=== PATIENT | female | born 1995 ===

== ENCOUNTER 2021-02-08 08:08 | Emergency (ER) | payer SELFPAY ==
[2021-02-08 08:17] VITALS: BP 132/94; PULSE 93; RESP 16; TEMP 36.8; O2SAT 99
--- NOTE | 2021-02-08 08:43 | ED.URI ---
HPI - URI/Sore Throat General Chief Complaint: Upper Respiratory Infection Stated Complaint: Sore throat Time Seen by Provider: 02/08/21 08:38 Source: patient and RN notes reviewed Mode of arrival: ambulatory Limitations: no limitations History of Present Illness HPI Narrative: Patient presents today complaining of sore throat x2 days with bilateral ear pain. Denies cough, congestion, rhinorrhea. Currently rates her pain 9/10 and has been taking ibuprofen, Tylenol, and cough drops without relief. MD elicited complaint: sore throat Related Data Allergies Allergy/AdvReac Type Severity Reaction Status Date / Time ethinyl estradiol [NuvaRing] Allergy Unknown itching, Verified 02/08/21 08:16 elevated liver enzymes etonogestrel [NuvaRing] Allergy Unknown itching, Verified 02/08/21 08:16 elevated liver enzymes No Known Allergies Allergy Verified 02/08/21 08:16 Review of Systems Review of Systems: CONSTITUTIONAL: Denies body aches, fever, chills, or sweats. EYES: Denies visual changes, redness, or discharge. ENT: Denies rhinorrhea, congestion. + Sore throat, ear pain CARDIOVASCULAR: Denies chest pain, palpitations, or edema. RESPIRATORY: Denies cough or dyspnea. GASTROINTESTINAL: Denies abdominal pain, nausea, vomiting, or diarrhea. GENITOURINARY: Denies dysuria or hematuria. SKIN: Denies rash, itching, or wounds. MUSCULOSKELETAL: Denies back pain, joint pain, or myalgia. NEUROLOGIC: Denies headache, numbness, tingling, or weakness. PSYCH: Denies depression or anxiety. [facility] Family History Family History Mother Depression Suicide Father Hypertension Grandparent Hypertension Cerebrovascular accident Family history of lung cancer Family history of malignant neoplasm of brain Social History Social History Smoking status: Never smoker Alcohol intake: current Drinks per week: 2 Substance use: never Additional occupation/education comments: [employer] Gender identity (if verbalized by the patient): Female Sexual Orientation (if Verbalized by the Patient): Straight or Heterosexual Spiritual care concerns: No Agree to blood products: Yes Comments At time of signature, I have reviewed and agree with nursing past medical, surgical, social and family history unless otherwise noted. Please see nursing chart for further information. There is no relevant family history pertinent to the presenting complaint Exam Narrative: GENERAL: Well-appearing, well-nourished, and in no acute distress. HEAD: Normocephalic, atraumatic. EYES: EOMI. No redness or drainage. Conjunctivae normal. ENT: Mucous membranes pink and moist. Nares clear. No rhinorrhea. TMs normal bilaterally. Throat mildly erythematous without edema or exudate. Uvula midline. NECK: Normal AROM. Supple. No lymphadenopathy. CHEST: No respiratory distress. Clear to auscultation. HEART: Regular rate and rhythm. No murmur appreciated. Normal peripheral pulses. EXTREMITIES: Normal range of motion. No edema. SKIN: Warm, dry, no rash. Capillary refill normal. Normal skin turgor. NEURO: No focal deficits. Alert and oriented x3. Gait steady. PSYCH: Normal affect. No signs of depression or anxiety. Course Vital Signs Vital signs: Vital Signs Temperature 98.3 F 02/08/21 08:17 Pulse Rate 93 02/08/21 08:17 Respiratory Rate 16 02/08/21 08:17 Blood Pressure 132/94 H 02/08/21 08:17 Pulse Oximetry 99 02/08/21 08:17 Temperature 98.3 F 02/08/21 08:17 Pulse Rate 93 02/08/21 08:17 Respiratory Rate 16 02/08/21 08:17 Blood Pressure 132/94 H 02/08/21 08:17 Pulse Oximetry 99 02/08/21 08:17 Reviewed. Pt has been instructed to follow up with her PCP regarding her elevated blood pressure today. MDM - URI/Sore Throat Differential Diagnosis Differential diagnosis: Likely
== END 2021-02-08 08:47 | disposition home or self-care (01) ==
PROVIDERS: Emergency Provider Nurse Practitioner; PCP Family Medicine
DX: J02.9 Acute pharyngitis, unspecified (principal)
CPT/HCPCS: 87081; 87880; 99213; G0463

== ENCOUNTER 2023-08-05 03:12 | Emergency (ER) | payer OTHER, SELFPAY ==
--- NOTE | ~2023-08-05 | CT_ITS ---
EXAMINATION: CT abdomen pelvis wo con DATE: 08/05/2023 04:18 INDICATION: Left flank pain. TECHNIQUE: Computed tomography (CT) of the abdomen and pelvis was performed without intravenous contr ast. Automated exposure control and iterative reconstruction technique were employed. The dose-length product was 872.57 mGy-cm. COMPARISON: CT abdomen and pelvis 07/14/2016 FINDINGS: The visualized portions of the lung bases demonstrate mild atelectasis. There is a 4 mm nod ule in right middle lobe, likely benign. There is a 4 mm nodule in right lower lobe, likely benign. N o pleural effusion. The heart size is normal. No pericardial effusion. The liver, gallbladder, spleen , pancreas, adrenal glands, and kidneys are normal. There is a 2 mm stone in the distal left ureter. There is mild left hydroureter. There are no dilated loops of bowel. The appendix is normal. There ar e no pathologically enlarged lymph nodes. There is no free intraperitoneal fluid. There is mild thora cic spondylosis. IMPRESSION: 1. 2 mm stone in distal left ureter with mild left hydroureter. Reviewed, dictated and finalized at location A.
[2023-08-05 03:16] VITALS: BP 136/74; PULSE 88; RESP 15; TEMP 36.7; O2SAT 100
[2023-08-05 03:28] VITALS: BP 128/79; PULSE 77; RESP 16; O2SAT 100
--- NOTE | 2023-08-05 03:30 | ED.ABDPAIN ---
HPI - Abdominal Pain General Chief Complaint: Abdominal Pain Stated Complaint: Lower left abd pain Time Seen by Provider: 08/05/23 03:14 History of Present Illness HPI narrative: Patient is a 28-year-old female presents to the emergency department this morning complaining of left-sided flank pain and left lower quadrant abdominal pain. Patient admits that she has had similar symptoms in the past when she had kidney stones and believes that she is passing another one. Patient denies any vomiting episodes but states that she has been nauseous secondary to the pain. She denies any history of ovarian cyst, denies any chance of , and is denying any urinary symptoms including dysuria or hematuria. Patient denies any fevers or chills at home. There are no other modifying, alleviating, or precipitating factors at this time. Related Data Allergies Allergy/AdvReac Type Severity Reaction Status Date / Time ethinyl estradiol [NuvaRing] Allergy Unknown itching, Verified 08/05/23 03:30 elevated liver enzymes etonogestrel [NuvaRing] Allergy Unknown itching, Verified 08/05/23 03:30 elevated liver enzymes amoxicillin Allergy Hives Verified 08/05/23 03:30 No Known Allergies Allergy Verified 02/08/21 08:16 Review of Systems Review of Systems: All systems are reviewed and are negative unless stated otherwise in the HPI. PMFSH Family History Family History Mother Depression Suicide Father Hypertension Grandparent Hypertension Cerebrovascular accident Family history of lung cancer Family history of malignant neoplasm of brain Social History Social History Smoking status: Never smoker Alcohol intake: current Drinks per week: 2 Substance use: never Living arrangements: with family Occupation/Education: occupation Additional occupation/education comments: [employer] Gender identity (if verbalized by the patient): Female Sexual Orientation (if Verbalized by the Patient): Straight or Heterosexual Spiritual care concerns: No Agree to blood products: Yes Exam Narrative: General: Alert, awake, afebrile, in no acute distress. HEENT: PERRL, no rhinorrhea, no post nasal drip, oropharynx clear. Neck: Trachea midline, no JVD, no lymphadenopathy. Cardiovascular: Regular rate and rhythm, no murmurs, rubs or gallops, no peripheral edema. Respiratory: Clear to auscultation bilaterally, no tachypnea, no wheezing, no rhonchi, no rubs, no respiratory distress. Abdomen: Soft, left CVA tenderness, nondistended, no rebound, no guarding, no peritoneal signs. Musculoskeletal: No joint swelling or deformity, normal muscle tone. Skin: No rashes or petechia, no signs of infection. Psychiatric: Alert and oriented, normal behavior and judgment for situation. Neurological: Alert and oriented to person, place, and time. Follows all commands. No focal deficits, speech is clear and fluent. Course Vital Signs Vital signs: Vital Signs Temperature 98.0 F 08/05/23 03:16 Pulse Rate 88 08/05/23 03:16 Respiratory Rate 15 08/05/23 03:16 Blood Pressure 136/74 08/05/23 03:16 Pulse Oximetry 100 08/05/23 03:16 Temperature 98.0 F 08/05/23 03:16 Pulse Rate 85 08/05/23 04:44 Respiratory Rate 17 08/05/23 04:44 Blood Pressure 114/75 08/05/23 04:44 Pulse Oximetry 100 08/05/23 04:44 MDM - Abdominal Pain MDM Narrative Medical decision making narrative: The patient was evaluated by myself in the emergency department. History is obtained from patient who is an independent historian and physical exam was performed. External medical records were reviewed at this time. IV was established and pertinent tests were ordered. Patient was administered 2 mg of IV morphine and 4 mg of IV Zofran for nausea. Laboratory results obtained revealing no acute
[2023-08-05] MEDS: ONDANSETRON INJ 4 MG/2 ML VIAL IV PUSH (03:45)
[2023-08-05] MEDS: MORPHINE SULFATE (*CRX) 2 MG/ML INJ IV PUSH (03:45)
[2023-08-05 03:54] LABS: Basophils Percent Auto 0.3 % (0.2-1.2); Eosinophils Absolute Auto 0.3 K/mm3 (0-0.3); Eosinophils Percent Auto 3.6 % (0-4.4); Hematocrit 38.9 % (37.0-47.0); Hemoglobin 12.6 g/dL (12.0-15.0); Immature Granulocyte Absolute 0.02 K/mm3 (0.00-0.031); Immature Granulocyte Percent A 0.2 % (0-0.5); Lymphocytes Absolute Auto 1.63 K/mm3 (0.9-3.2); Lymphocytes Percent Auto 18.3 % (18.3-44.2); Mean Corpuscular HGB Conc 32.4 g/dl (32-36); Mean Corpuscular Hemoglobin 27.8 pg (26-34); Mean Corpuscular Volume 85.9 fl (80-100); Mean Platelet Volume 9.1 fl (7.4-10.4); Monocytes Absolute Auto 0.6 K/mm3 (0.1-0.6); Monocytes Percent Auto 7.1 % (2.6-8.5); Neutrophils Absolute Auto 6.3 K/mm3 (1.3-6.7); Neutrophils Percent Auto 70.5 % (45.5-73.1); Platelet Count Result 254 k/mm3 (150-375); Red Blood Count 4.53 M/mm3 (4.2-5.4); Red Cell Distribution Width 12.8 % (11.5-14.5); White Blood Count 8.9 K/mm3 (4.5-10.0)
[2023-08-05 03:57] LABS: Bacteria Urine None Seen /hpf; RBC Urine >100 /hpf (0-2); Squamous Epithelial Cell Urine Occasional /hpf (Few)
[2023-08-05 03:59] LABS: Appearance Urine Clear (Clear); Bilirubin Urine Negative (Negative); Blood Urine 3+ (Negative); Color Urine Yellow (Yellow); Glucose Urine UA Negative (Negative); Ketones Urine Trace mg/dL (Negative); Nitrate Urine Negative (Negative); Protein Urine Trace mg/dL (Negative); Specific Grav Ur 1.025 (1.001-1.035)
[2023-08-05 04:00] LABS: Leukocyte Esterase Ur Negative LEU/UL (Negative); Urobilinogen Urine 0.2 mg/dL (<2.0)
[2023-08-05 04:03] LABS: Alanine Aminotransferase 19 U/L (6-35); Albumin Level 4.3 g/dL (3.5-5.1); Alkaline Phosphatase 76 U/L (38-126); Anion Gap 5 mmol/L (4-12); Aspartate Amino Transferase 23 U/L (14-36); Bilirubin,Total 0.5 mg/dL (0.2-1.3); Blood Urea Nitrogen 12 mg/dL (7-17); Calcium 9.3 mg/dL (8.4-10.2); Carbon Dioxide 31 mmol/L (22-30); Chloride 104 mmol/L (98-107); Estimated CRCL calculation 88 ml/min; Estimated Glomerular Filt Rate > 60; Glucose 114 mg/dL (65-110); Potassium 3.4 mmol/L (3.4-5.0); Sodium 140 mmol/L (137-145)
[2023-08-05 04:04] LABS: Lactic Acid Reflex 1.5 mmol/L (0.7-2.0)
[2023-08-05 04:23] LABS: SPREG INTERNAL CONTROL Positive; Serum Qual hCG Negative
[2023-08-05 04:24] LABS: Add Urine Microscopic? YES
[2023-08-05] MEDS: SODIUM CHLORIDE 0.9% IV 1,000 ML 999 ML IV CONT (04:24)
[2023-08-05 04:44] VITALS: BP 114/75; PULSE 85; RESP 17; O2SAT 100
[2023-08-05] MEDS: KETOROLAC 15 MG/ML VIAL (*BKC) IV PUSH (05:11)
== END 2023-08-05 05:10 | disposition home or self-care (01) ==
PROVIDERS: Emergency Provider Emergency Medicine
DX: N13.2 Hydronephrosis with renal and ureteral calculous obstruction (principal)
CPT/HCPCS: 36415; 74176; 80053; 81001; 81025; 83605; 84703; 85025; 87086; 87088; 96361; 96374; 96375; 99284; J1885; J2270; J2405; J7030

== ENCOUNTER 2023-08-08 06:05 | Day surgery (SDC) | payer OTHER, SELFPAY ==
[2023-08-08] VITALS (7 sets, daily range): BP systolic 125–145; BP diastolic 75–109; PULSE 71–100; RESP 12–19; TEMP 36.6; O2SAT 96–100
--- NOTE | ~2023-08-08 | XR_ITS ---
XR retrograde pyelo w/stent LT DATE: 08/08/2023 09:17 INDICATION: Left urinary tract stone. TECHNIQUE: 5 spot C-arm images of the abdomen and pelvis. 25 seconds fluoroscopy time 9.69 mGy COMPARISON: CT abdomen pelvis FINDINGS: A cystoscope is placed, with performance of left retrograde pyelogram. Subsequent placement of left internal urinary stent, proximal pigtail overlying the approximate posit ion of left renal pelvis, distal pigtail overlying left-sided urinary bladder. IMPRESSION: Left internal urinary stent placement Reviewed, dictated and finalized at Location [facility]. Reviewed, dictated and finalized at location A.
--- NOTE | ~2023-08-08 | XR_ITS ---
XR abdomen/kub 1V DATE: 08/08/2023 08:00 INDICATION: Left flank pain TECHNIQUE: AP view COMPARISON: 08/05/2023 CT abdomen pelvis FINDINGS: No prior KUB is available for comparison. Probable left calcified pelvic phlebolith and multiple right calcified pelvic phleboliths. No comparison KUB is available from 08/05/2023 CT abdomen pelvis examination which revealed a small ca lcified calculus in the distal left ureter and a nearby calcified pelvic phlebolith. No evidence of bowel obstruction. No visceromegaly is detected. Included skeletal structures are unre markable. The lung bases appear clear. IMPRESSION: Probable calcified pelvic phleboliths Reviewed, dictated and finalized at Location [facility]. Reviewed, dictated and finalized at location A.
[2023-08-08] MEDS: KETOROLAC 30 MG/ML VIAL (*BKC) IM (07:30)
[2023-08-08] MEDS: ONDANSETRON HCL ODT 4 MG TABLET PO (07:33)
[2023-08-08 08:06] LABS: Appearance Urine Cloudy (Clear); Bacteria Urine Rare /hpf; Bilirubin Urine Negative (Negative); Blood Urine 2+ (Negative); Color Urine Yellow (Yellow); Glucose Urine UA Negative (Negative); Ketones Urine Negative (Negative); Leukocyte Esterase Ur Negative LEU/UL (Negative); Nitrate Urine Negative (Negative); Non Pathogenic Casts 0-2; Protein Urine Negative (Negative); RBC Urine 21-50 /hpf (0-2); Specific Grav Ur 1.022 (1.001-1.035); Squamous Epithelial Cell Urine Moderate /hpf (Few); Urobilinogen Urine 0.2 mg/dL (<2.0)
[2023-08-08 08:20] LABS: Add Urine Microscopic? YES
--- NOTE | 2023-08-08 08:25 | WPDURCON ---
Assessment and Plan Assessment and plan (1) Ureteral stone: Code(s): N20.1 - Calculus of ureter Status: Acute Assessment and Plan: Patient with distal left ureteral stone and failed trial of passage. I offered her admission for pain control vs. outpatient pain control with Ketorolac vs. proceeding for stent placement and attempted stone removal since she has been NPO. She opts for the latter. PLAN: -To OR for Cystoscopy, Left Retrograde Pyelogram, Ureteral Stent -- possible ureteroscopy, possible holmium laser lithotripsy -R/B/A discussed and she agrees to proceed -Will plan to d/c home from PACU with Rx for Ketorolac Urology Consult Note HPI Date Seen: 08/08/23 Primary Care Provider: UNKNOWN,DOCTOR Consult Narrative Narrative: Stefan Bach is a 28 year old female who presents with persistent left flank pain and PO intolerance. She was here 08/04 for the same symptoms, had a 3-4mm left distal ureteral stone and was given trial of passage with [place] and Tamsulosin. She says that this morning the pain has become too much to tolerate. She has been NPO since midnight. She has had prior stone events, but never needed surgery for them. Her fianceJoseph ([phone]) is with her today. No labs from today, but 08/04 Cr was 0.8, UA nitrite negative, with RBC > WBC. Review of Systems Review of Systems: All systems reviewed & are unremarkable except as noted in HPI and below PMFSH Past Medical History Medical History (Updated 08/08/23 @ 08:28 by Festus Gamez MD) Ureteral stone Family History Family History Mother Depression Suicide Father Hypertension Grandparent Hypertension Cerebrovascular accident Family history of lung cancer Family history of malignant neoplasm of brain Social History Social History Smoking status: Never smoker Alcohol intake: current Drinks per week: 2 Substance use: never Living arrangements: with family Occupation/Education: occupation Additional occupation/education comments: [employer] Gender identity (if verbalized by the patient): Female Sexual Orientation (if Verbalized by the Patient): Straight or Heterosexual Spiritual care concerns: No Agree to blood products: Yes Meds Home Medications and Allergies Home Medications Medication Instructions Recorded Confirmed Type phentermine 37.5 mg tablet 18.75 mg PO DAILY #30 tabs 04/25/20 04/25/20 Rx norethindrone 1 mg-ethinyl 1 tablet PO DAILY #84 tabs 04/18/22 Rx estradiol 20 mcg (24)-iron 75 mg (4) tablet () hydrocodone 5 mg-acetaminophen 325 1 tablet PO Q8H PRN pain #10 tabs 08/05/23 Rx mg tablet ibuprofen 400 mg tablet 400 mg PO TID PRN pain #20 tabs 08/05/23 Rx ondansetron 4 mg disintegrating 4 mg PO Q8H PRN nausea and 08/05/23 Rx tablet vomiting #14 tabs tamsulosin 0.4 mg capsule (Flomax) 0.4 mg PO DAILY #14 caps 08/05/23 Rx Allergies Allergy/AdvReac Type Severity Reaction Status Date / Time ethinyl estradiol [NuvaRing] Allergy Unknown itching, Verified 08/05/23 03:30 elevated liver enzymes etonogestrel [NuvaRing] Allergy Unknown itching, Verified 08/05/23 03:30 elevated liver enzymes amoxicillin Allergy Hives Verified 08/05/23 03:30 No Known Allergies Allergy Verified 02/08/21 08:16 Vital Signs Vital Signs - 24 hr 08/08/23 06:16 Temperature 36.6 C Pulse Rate 74 Respiratory Rate 15 Blood Pressure 145/109 H Pulse Oximetry 100 Oxygen Delivery Room Air Exam Narrative: Appears uncomfortable, pacing the room Results Labs Labs: Urine 08/08/23 Range/Units 07:38 Urine Color Yellow (Yellow) Urine Appearance Cloudy H (Clear) Urine pH 6.0 (5.0-9.0) Ur Specific [place] 1.022 (1.001-1.035) Urine Protein Negative (Negative) mg/dL Urine Glucose (UA) Ne
--- NOTE | 2023-08-08 08:26 | ED.FEMALEGU ---
HPI - Female Genitourinary General Chief complaint: Urogenital-Female Stated complaint: confirmed 3mm kidney stone, cant pass Time Seen by Provider: 08/08/23 07:06 History of Present Illness HPI Narrative: Patient here recently with kidney stone, was hoping that it would pass, however is still having severe pain. Has been trying to take the [place] does with only minimal improvement throwing up due to pain today. Related Data Allergies Allergy/AdvReac Type Severity Reaction Status Date / Time ethinyl estradiol [NuvaRing] Allergy Unknown itching, Verified 08/05/23 03:30 elevated liver enzymes etonogestrel [NuvaRing] Allergy Unknown itching, Verified 08/05/23 03:30 elevated liver enzymes amoxicillin Allergy Hives Verified 08/05/23 03:30 No Known Allergies Allergy Verified 02/08/21 08:16 Review of Systems Review of Systems: CONST: No fever. HEENT: No sore throat C/V: No chest pain RESP: No cough GI: Nausea, vomiting : left flank pain, dysuria M/S: No joint pain. SKIN: No rash. NEURO: [No headache or focal numbness or weakness] PSYCH: [No depression] [facility] Past Medical History Medical History (Updated 08/08/23 @ 08:28 by Festus Gamez MD) Ureteral stone Family History Family History Mother Depression Suicide Father Hypertension Grandparent Hypertension Cerebrovascular accident Family history of lung cancer Family history of malignant neoplasm of brain Social History Social History Smoking status: Never smoker Alcohol intake: current Drinks per week: 2 Substance use: never Living arrangements: with family Occupation/Education: occupation Additional occupation/education comments: [employer] Gender identity (if verbalized by the patient): Female Sexual Orientation (if Verbalized by the Patient): Straight or Heterosexual Spiritual care concerns: No Agree to blood products: Yes Exam Narrative: EXAMINATION OF ORGAN SYSTEMS/BODY AREAS: Constitutional: Vital signs per nursing GENERAL: actively retching and appearing miserable HEAD: Normal with no signs of head trauma. EYES: EOMI, conjunctiva normal ENT: Hearing grossly intact LUNGS: Nonlabored breathing. HEART: [Regular rate and rhythm] ABD: [Soft], left CVA tenderness EXT: Normal range of motion SKIN: [No rashes or lesions.] NEURO: [Alert and oriented x 3. No gross focal sensory or strength deficits.] PSYCH: Normal affect Course Vital Signs Vital signs: Vital Signs Temperature 97.9 F 08/08/23 06:16 Pulse Rate 74 08/08/23 06:16 Respiratory Rate 15 08/08/23 06:16 Blood Pressure 145/109 H 08/08/23 06:16 Pulse Oximetry 100 08/08/23 06:16 Oxygen Delivery Room Air 08/08/23 06:16 Temperature 97.9 F 08/08/23 06:16 Pulse Rate 74 08/08/23 06:16 Respiratory Rate 15 08/08/23 06:16 Blood Pressure 145/109 H 08/08/23 06:16 Pulse Oximetry 100 08/08/23 06:16 Oxygen Delivery Room Air 08/08/23 06:16 MDM - Female Genitourinary MDM Narrative Medical decision making narrative: ED COURSE AND MEDICAL DECISION MAKINF presenting to the emergency department for acute flank pain, symptoms are concerning for likely renal colic versus pyelonephritis. Urinalysis is ordered. [Toradol 15mg, Zofran 4mg] are ordered. She already has recent CT with stone at [facility]. Dr Gamez urology here at bedside and plans to take patient to the OR. Lab Data Labs: Lab Results 08/08/23 Range/Units 07:38 Urine Color Yellow (Yellow) Urine Appearance Cloudy H (Clear) Urine pH 6.0 (5.0-9.0) Ur Specific [place] 1.022 (1.001-1.035) Urine Protein Negative (Negative) mg/dL Urine Glucose (UA) Negative (Negative) mg/dL Urine Ketones Negative (Negative) mg/dL Ur Blood (Man) 2+ H (Negative) Urine Nitrate Negative
--- NOTE | 2023-08-08 08:31 | WPDHPUPDATE1 ---
History and Physical Update Update Date/Time: 08/08/23 08:31 History and Physical has been reviewed, including an updated exam of the patient. There are NO changes in the patient's condition. Risks, benefits, and alternatives have been discussed and questions answered. Patient agrees to proceed with procedure.
--- NOTE | 2023-08-08 08:32 | P.OP_ITS ---
Procedure Note - Detailed Date of Procedure 08/08/23 Pre-op Diagnosis Left ureteral stone Post-op Diagnosis Same Procedure Performed #1) Left ureteroscopy, basket extraction of stone #2) Cystoscopy, left retrograde pyelogram, ureteral stent placement Surgeon Festus Gamez MD Anesthesia General Indications Failed trial of passage from 08/05/2023 Description of Procedure Prior to the operation an informed consent was obtained.? The patient was brought back to the operative suite and a detailed timeout was performed.? General anesthesia was induced without complication.? The patient was administered IV antibiotics in the prophylactic form.? The patient was posit ioned in the dorsal lithotomy position with close attention to all pressure points and was prepped and draped in sterile fashion. We began the case using a rigid cystoscope to gain access into the bladder under direct visualization per urethra. Cystoscopy was unremarkable. We turned our attention to the left ureteral orifice and cannulated it using an 8/10 ureteral dilator and sensor wire.? We radiologically confirmed the wire to pass up into the renal pelvis before advancing the ureteral dilator into the distal ureter. The stone was identified (3-4mm, distal left ureter) and basket extracted using a 0-tipped nitinol basket -- it was sent for chemical analysis We performed a retrograde pyelogram through the scope to keep our wire in place. With our wire in place, we placed a 4.8Fr variable length double-J ureteral stent.? We left a string attached. We confirmed excellent position fluoroscopically.? The patient's bladder was emptied at the conclusion of the case and they tolerated the procedure well. PLAN: -PACU, home with stent on string -Can remove stent on string on Thursday -Follow up with Urology 4-6 weeks post-op with LINDSEY prior, if able, otherwise, PRN This note was created with the assistance of voice-recognition software and may contain phonetic errors.
--- NOTE | 2023-08-08 08:43 | WPDANESEPPF ---
Anes - Initial Pre Proc Eval Procedure: Operation Date: 08/08/23 08:30 Proposed Procedures p Cysto, RPG, Stone Ext, Stent Placement - Festus Gamez MD Date/Time: 08/08/23 08:43 Pre Op Diagnosis: confirmed 3mm kidney stone, cant pass Patient Data Age: 28 Gender: F Height: 1.6 m Weight: 52.16 kg Last Vital Signs Temp 36.6 C 08/08/23 06:16 Pulse 71 08/08/23 08:29 Resp 19 08/08/23 08:29 BP 137/88 08/08/23 08:29 Pulse Ox 99 08/08/23 08:29 O2 Del Method Room Air 08/08/23 06:16 Allergies Allergy/AdvReac Type Severity Reaction Status Date / Time ethinyl estradiol [NuvaRing] Allergy Unknown itching, Verified 08/05/23 03:30 elevated liver enzymes etonogestrel [NuvaRing] Allergy Unknown itching, Verified 08/05/23 03:30 elevated liver enzymes amoxicillin Allergy Hives Verified 08/05/23 03:30 No Known Allergies Allergy Verified 02/08/21 08:16 Home Medications Medication Instructions Recorded Confirmed Type phentermine 37.5 mg tablet 18.75 mg PO DAILY #30 tabs 04/25/20 04/25/20 Rx norethindrone 1 mg-ethinyl 1 tablet PO DAILY #84 tabs 04/18/22 Rx estradiol 20 mcg (24)-iron 75 mg (4) tablet () hydrocodone 5 mg-acetaminophen 325 1 tablet PO Q8H PRN pain #10 tabs 08/05/23 Rx mg tablet ibuprofen 400 mg tablet 400 mg PO TID PRN pain #20 tabs 08/05/23 Rx ondansetron 4 mg disintegrating 4 mg PO Q8H PRN nausea and 08/05/23 Rx tablet vomiting #14 tabs tamsulosin 0.4 mg capsule (Flomax) 0.4 mg PO DAILY #14 caps 08/05/23 Rx Laboratory Tests 08/08/23 07:38 Urine Color Yellow (Yellow) Urine Appearance Cloudy H (Clear) Urine pH 6.0 (5.0-9.0) Ur Specific [place] 1.022 (1.001-1.035) Urine Protein Negative mg/dL (Negative) Urine Glucose (UA) Negative mg/dL (Negative) Urine Ketones Negative mg/dL (Negative) Ur Blood (Man) 2+ H (Negative) Urine Nitrate Negative (Negative) Urine Bilirubin Negative (Negative) Urine Urobilinogen 0.2 mg/dL (<2.0) Leukocyte Esterase Rfl Negative KAMLESH/UL (Negative) Urine RBC 21-50 H /hpf (0-2) Urine WBC 6-10 H /hpf (0-3) Ur Squamous Epith Cells Moderate /hpf (Few) Urine Bacteria Rare /hpf Urine Casts 0-2 Patient hx anesthesia problems: none Family hx anesthesia problems: none Results Review: All pre-operative results and documents have been reviewed as part of the pre-operative evaluation. [facility] Past Medical History Medical History Ureteral stone Family History Family History Mother Depression Suicide Father Hypertension Grandparent Hypertension Cerebrovascular accident Family history of lung cancer Family history of malignant neoplasm of brain Social History Social History Smoking status: Never smoker Alcohol intake: current Drinks per week: 2 Substance use: never Living arrangements: with family Occupation/Education: occupation Additional occupation/education comments: [employer] Gender identity (if verbalized by the patient): Female Sexual Orientation (if Verbalized by the Patient): Straight or Heterosexual Spiritual care concerns: No Agree to blood products: Yes Anes - Eval Final PreProcedure Day of Procedure 08/08/23 08:43 Patient weight: overweight Heart: regular rate and rhythm Lungs: clear to auscultation Airway: Mallampati scale class II Neurological: alert and oriented Last oral intake: >/= 8 hours ASA classification: II Emergent: yes Anesthetic plan: proceed Anesthesia type and monitoring: general LMA and standard monitoring Results Review: All pre-operative results and documents have been reviewed as part of the pre-operative evaluation. Informed Consent:
[2023-08-08] MEDS: ceFAZolin 2 GM/D5W 50 ML 2 GM/50 ML BAG IVPB (08:45)
[2023-08-08] MEDS: LIDOCAINE HCL 2% GEL UROJET 10 ML PKG MUCOUS MEM (08:59)
[2023-08-08] MEDS: LACTATED RINGERS 1,000 ML 30 ML IV CONT (09:18)
[2023-08-08] MEDS: fentaNYL CITRATE INJ (*CRX) 100 MCG/2 ML VIAL 25 MCG IV PUSH ×4 (09:20→10:00)
== END 2023-08-08 10:20 | disposition home or self-care (01) ==
LOC: ANHED 08:26 → ANHSURGERY 09:03
PROVIDERS: Emergency Provider Emergency Medicine; Visit Provider Urology
PROC: (CPT 52352; principal; 2023-08-08 08:30)
DX: N13.2 Hydronephrosis with renal and ureteral calculous obstruction (principal)
CPT/HCPCS: 52332; 52352; 74018; 74420; 81001; 82365; 87077; 87086; 87186; 88300; 96372; 99285; A9270; C1769; C2617; J0690; J1885; J2405; J2704; J3010; J7120; Q9966

== ENCOUNTER 2024-05-30 07:16 | Observation (INO) | payer OTHER, SELFPAY ==
[2024-05-30] VITALS (16 sets, daily range): BP systolic 127–157; BP diastolic 89–104; PULSE 71–90; TEMP 36.6–37; BMI 35.9
[2024-05-30 07:44] LABS: Basophils Percent Auto 0.3 % (0.2-1.2); Eosinophils Absolute Auto 0.1 K/mm3 (0-0.3); Eosinophils Percent Auto 0.8 % (0-4.4); Hematocrit 31.7 % (37.0-47.0); Hemoglobin 10.5 g/dL (12.0-15.0); Immature Granulocyte Absolute 0.06 K/mm3 (0.00-0.031); Immature Granulocyte Percent A 0.7 % (0-0.5); Lymphocytes Absolute Auto 1.32 K/mm3 (0.9-3.2); Lymphocytes Percent Auto 14.7 % (18.3-44.2); Mean Corpuscular HGB Conc 33.1 g/dl (32-36); Mean Corpuscular Hemoglobin 28.1 pg (26-34); Mean Corpuscular Volume 84.8 fl (80-100); Mean Platelet Volume 8.9 fl (7.4-10.4); Monocytes Absolute Auto 0.8 K/mm3 (0.1-0.6); Monocytes Percent Auto 8.9 % (2.6-8.5); Neutrophils Absolute Auto 6.7 K/mm3 (1.3-6.7); Neutrophils Percent Auto 74.6 % (45.5-73.1); Platelet Count Result 303 k/mm3 (150-375); Red Blood Count 3.74 M/mm3 (4.2-5.4); Red Cell Distribution Width 12.7 % (11.5-14.5)
[2024-05-30 08:05] LABS: Alanine Aminotransferase 256 U/L (6-35); Albumin Level 3.4 g/dL (3.5-5.1); Alkaline Phosphatase 227 U/L (38-126); Anion Gap 11 mmol/L (4-12); Aspartate Amino Transferase 228 U/L (14-36); Bilirubin,Total 1.9 mg/dL (0.2-1.3); Blood Urea Nitrogen 4 mg/dL (7-17); Calcium 9.4 mg/dL (8.4-10.2); Carbon Dioxide 24 mmol/L (22-30); Chloride 103 mmol/L (98-107); Estimated Glomerular Filt Rate > 60; Glucose 100 mg/dL (65-110); Potassium 2.8 mmol/L (3.4-5.0); Sodium 138 mmol/L (137-145); Uric Acid 4.2 mg/dL (2.5-7.5)
[2024-05-30 08:16] LABS: Add Urine Microscopic? YES; Appearance Urine Turbid (Clear); Bacteria Urine 2+ /hpf; Bilirubin Urine 2+ (Negative); Blood Urine 1+ (Negative); Color Urine Dark Yellow (Yellow); Glucose Urine UA Negative (Negative); Ketones Urine 1+ mg/dL (Negative); Leukocyte Esterase Ur 1+ LEU/UL (Negative); Need Manual Microscopic Reviewed; Nitrate Urine Negative (Negative); Protein Urine 1+ mg/dL (Negative); Specific Grav Ur 1.015 (1.001-1.035); Squamous Epithelial Cell Urine Many /hpf (Few); WBC Urine 21-50 /hpf (0-3)
[2024-05-30 09:01] LABS: Total Protein Urine Random 78 mg/dL; Ur Ttl Prot Creatinine Ratio 0.39 mg/mg (0-0.20)
[2024-05-30] MEDS: POTASSIUM CHLORIDE 20 MEQ ER TABLET 40 MEQ PO (09:42)
[2024-05-30] MEDS: BETAMETHASONE SOD PHOS/ACETATE 30 MG/5 ML VIAL 12 MG IM (09:42)
[2024-05-30] MEDS: LACTATED RINGERS 1,000 ML 75 ML IV CONT (09:43)
[2024-05-30] MEDS: MAGNESIUM SULF 4 GM/WATER100ML 4 GM/100 ML BAG IVPB (09:44)
--- NOTE | 2024-05-30 10:04 | PM.IMHP ---
H&P: HPI History of Present Illness Date/Time: 05/30/24 10:04 Chief Complaint: Headache and blurred vision Narrative: this is a 28-year-old 1 para 0 at 327 weeks gestation who has been on Procardia for elevated blood pressures who is admitted with the 5/10 headache and elevated liver function test. She has begun on magnesium sulfate she received a dose of Celestone and will be transferred due to prematurity Review of Systems Review of Systems: CONST: No fever. HEENT: No sore throat C/V: No chest pain RESP: No cough GI: Nausea, vomiting : left flank pain, dysuria M/S: No joint pain. SKIN: No rash. NEURO: [No headache or focal numbness or weakness] PSYCH: [No depression] [facility] Past Medical History Medical History Ureteral stone Family History Family History Mother Depression Suicide Father Hypertension Grandparent Hypertension Cerebrovascular accident Family history of lung cancer Family history of malignant neoplasm of brain Social History Social History Smoking status: Never smoker Alcohol intake: current Drinks per week: 2 Substance use: never Living arrangements: with family Occupation/Education: occupation Additional occupation/education comments: [employer] Gender identity (if verbalized by the patient): Female Sexual Orientation (if Verbalized by the Patient): Straight or Heterosexual Spiritual care concerns: No Agree to blood products: Yes Meds Home Medications and Allergies Home Medications ?Medication ?Instructions ?Recorded ?Confirmed ?Type phentermine 37.5 mg tablet 18.75 mg (1/2 x 37.5 mg) PO DAILY 04/25/20 04/25/20 Rx #30 tabs norethindrone 1 mg-ethinyl 1 tablet PO DAILY #84 tabs 04/18/22 Rx estradiol 20 mcg (24)-iron 75 mg (4) tablet () hydrocodone 5 mg-acetaminophen 325 1 tablet PO Q8H PRN pain #10 tabs 08/05/23 Rx mg tablet ibuprofen 400 mg tablet 400 mg PO TID PRN pain #20 tabs 08/05/23 Rx ondansetron 4 mg disintegrating 4 mg PO Q8H PRN nausea and 08/05/23 Rx tablet vomiting #14 tabs tamsulosin 0.4 mg capsule (Flomax) 0.4 mg PO DAILY #14 caps 08/05/23 Rx ketorolac 10 mg tablet 10 mg PO Q6H PRN pain 3 days #12 08/08/23 Rx tabs Allergies Allergy/AdvReac Type Severity Reaction Status Date / Time ethinyl estradiol (NuvaRing) Allergy Unknown itching, Verified 08/05/23 03:30 elevated liver enzymes etonogestrel (NuvaRing) Allergy Unknown itching, Verified 08/05/23 03:30 elevated liver enzymes amoxicillin Allergy Hives Verified 08/05/23 03:30 No Known Allergies Allergy Verified 02/08/21 08:16 Vital Signs Vital Signs - 24 hr 05/30/24 07:30 05/30/24 07:31 05/30/24 07:45 Pulse Rate 80 82 82 Blood Pressure 144/98 H 157/94 H 152/94 H 05/30/24 08:01 05/30/24 08:15 05/30/24 08:30 Pulse Rate 75 73 83 Blood Pressure 143/93 H 137/94 H 145/100 H 05/30/24 08:45 05/30/24 09:00 05/30/24 09:51 Pulse Rate 77 71 77 Blood Pressure 127/91 H 131/91 H 144/104 H 05/30/24 10:00 Pulse Rate 86 Blood Pressure 150/99 H Exam Const: General: cooperative, healthy appearing and comfortable Nutritional Appearance: average body habitus Orientation/consciousness: oriented to person, oriented to place and oriented to time Resp: Effort & Inspection: normal respiratory effort Cardio: Rate: regular rate Rhythm: regular rhythm Heart sounds: S1 normal heart sound present and S2 normal heart sound present GI: Inspection: normal to inspection ( gravid soft uterus) Other: heart tones were reassuring H&P: Results Labs Labs: Short CBC 05/30/24 Range/Units 07:33 WBC 9.0 (4.5-10.0) K/mm3 Hgb 10.5 L (12.0-15.0) g/dL Hct 31.7 L (37.0-47.0) % Plt Count 303 (150-375) k/mm3 BMP 05/30/24 07:33 Sodium 138 Potassium 2.8 L* Chloride 103 Carbon Dioxide 24 BUN 4 L D Creatinine 0.52 L Glucose 100 Calcium 9.4 Liver Function 05/30/24 Range/Units 07:33 Total Bilirubin 1.9 H (0.2-1.3) mg/dL AST 228 H (14-36) U/L ALT 256 H (6-35) U/L Alkaline Phosphatase 227 H (38-126) U/L Albumin 3.4 L (3.5-5.1) g/dL Urine 05/30/24 Range/Units 07:33 Urine Color Dark yellow (Yellow) Urine Appearance Turbid H (Clear) Urine pH 6.0 (5.0-9.0) Ur Specific [place] 1.015 (1.001-1.035) Urine Protein 1+ H (Negative) mg/dL Urine Glucose (UA) Negative (Negative) mg/dL Assessment and Plan Assessment and plan (1) induced hypertension: Code(s): O13.9 - Gestational [-induced] hypertension without significant proteinuria, unspecified trimester Status: Acute Plan magnesium started. Celestone started. Consider transfer to tertiary care [place]
--- NOTE | 2024-05-30 10:09 | PM.DS ---
DS: Admitting Diagnosis Discharge Date 05/30/2024 Admitting Diagnosis -induced hypertension DS: Discharge Diagnosis Discharge Diagnosis (1) induced hypertension: Code(s): O13.9 - Gestational [-induced] hypertension without significant proteinuria, unspecified trimester Status: Acute DS: Summary Hospital Course Reason for hospitalization: patient was admitted for observation secondary to headache. She had elevated blood pressure was on Procardia XL 30 daily. Hospital Course: The patient's liver functions were elevated. Magnesium was begun immediately and she was given Celestone. Consultation made with [facility] for tertiary care transfer and they agreed. Time Spent with Patient Time attestation: Total time spent providing and/or coordinating discharge services: Exam Const: General: cooperative, healthy appearing and comfortable Nutritional Appearance: average body habitus Orientation/consciousness: oriented to person, oriented to place and oriented to time Resp: Effort & Inspection: normal respiratory effort Cardio: Rate: regular rate Rhythm: regular rhythm Heart sounds: S1 normal heart sound present and S2 normal heart sound present GI: Inspection: normal to inspection ( Soft gravid uterus) DS: Data Data Completed and Pending Labs on day of discharge: Labs from last 24 hours 05/30/24 05/30/24 07:35 07:33 WBC 9.0 RBC 3.74 L Hgb 10.5 L Hct 31.7 L MCV 84.8 MCH 28.1 MCHC 33.1 RDW 12.7 Plt Count 303 MPV 8.9 Immature Gran % (Auto) 0.7 H Neut % (Auto) 74.6 H Lymph % (Auto) 14.7 L [place] % (Auto) 8.9 H Eos % (Auto) 0.8 Baso % (Auto) 0.3 Lymph # (Auto) 1.32 Grant # (Auto) 0.8 H Eos # (Auto) 0.1 Baso # (Auto) 0.0 Abs Immat Gran (auto) 0.06 H Absolute Neuts (auto) 6.7 Absolute Nucleated RBC 0.000 Nucleated RBC % 0.0 Sodium 138 Potassium 2.8 L* Chloride 103 Carbon Dioxide 24 Anion Gap 11 BUN 4 L D Creatinine 0.52 L Estim Creat Clear Calc Not Reportable Estimated GFR > 60 Glucose 100 Uric Acid 4.2 Calcium 9.4 Total Bilirubin 1.9 H AST 228 H ALT 256 H Alkaline Phosphatase 227 H Total Protein 7.0 Albumin 3.4 L Urine Color Dark yellow Urine Appearance Turbid H Urine pH 6.0 Ur Specific [place] 1.015 Urine Protein 1+ H Urine Glucose (UA) Negative Urine Ketones 1+ H Ur Blood (Man) 1+ H Urine Nitrate Negative Urine Bilirubin 2+ H Urine Urobilinogen 2.0 H Ur Leukocyte Esterase 1+ H Add Ur Microanalysis Reviewed Urine RBC 11-20 H Urine WBC 21-50 H Ur Squamous Epith Cells Many H Urine Bacteria 2+ H Urine Casts 6-10 U Random Total Protein 78 Urine Creatinine 199.0 Protein/Creat Ratio 2 0.39 H Discharge Plan Discharge Attending physician on discharge: Eliezer Dye Discharging Clinician: Eliezer Dye Patient Disposition: Other Activity: may shower and pelvic rest Diet: heart healthy Wound Care Instructions: follow printed instructions Discharge Instructions: transfer to [facility] Patient Instructions: Antibiotic Form Patient Language: Turkmen Discharge Medications: Continued phentermine 37.5 mg tablet 18.75 mg PO DAILY Qty: 30 0RF Rx Instructions: must administer 30 minutes before or 1-2 hours after breakfast ibuprofen 400 mg tablet 400 mg PO TID PRN (Reason: pain) Qty: 20 0RF ondansetron 4 mg tablet,disintegrating 4 mg PO Q8H PRN (Reason: nausea and vomiting) Qty: 14 0RF tamsulosin [Flomax] 0.4 mg capsule 0.4 mg PO DAILY Qty: 14 0RF hydrocodone-acetaminophen 5-325 mg tablet 1 tablet PO Q8H PRN (Reason: pain) Qty: 10 0RF ketorolac 10 mg tablet 10 mg PO Q6H PRN (Reason: pain) 3 Days Qty: 12 0RF Junel Fe 24 1 mg-20 mcg (24)/75 mg (4) tablet 1 tablet PO DAILY Qty: 84 0RF Date of admission: 05/30/24 07:16 Primary Care Provider: PHYSICIAN,NPS Admitting Provider: Prince Marsh Attending physician on admission: Prince Marsh Condition: Stable
[2024-05-30] MEDS: MAGNESIUM SULF 20GM/WATER500ML 500 ML 50 MG IV CONT (10:18)
== END 2024-05-30 11:55 | disposition short-term general hospital (02) ==
PROVIDERS: Admitting Provider Obstetrics & Gynecology; Visit Provider Obstetrics & Gynecology
DX: O13.3 Gestational [pregnancy-induced] hypertension without significant proteinuria, third trimester (principal); Z3A.30 30 weeks gestation of pregnancy
CPT/HCPCS: 36415; 80053; 81001; 82570; 84156; 84550; 85025; 87086; 96372; 96374; 96376; A9270; G0378; G0379; J0702; J3475; J7120